=== PATIENT | male | born 1960 | race Caucasian/White ===

== ENCOUNTER 2019-11-18 18:43 | Emergency (ER) | payer MEDICAID ==
[~2019-11-18] VITALS: Ht 180.3 cm; Wt 72.6 kg
[2019-11-18 19:01] VITALS: Ht 180.3 cm; Wt 72.6 kg
[2019-11-18 21:00] LABS: BASOPHIL % 0.2 % (0-2); PLATELET COUNT 199 x10^3mcL (130-400); RED CELL DISTRIBUTION WIDTH 14.4 % (11.5-14.5)
[2019-11-18 21:17] LABS: CALCIUM 8.8 mg/dL (8.5-10.1); CARBON DIOXIDE 23.6 mmol/L (21-32); CHLORIDE SERUM 97 mmol/L (98-107); CREATININE SERUM 0.9 mg/dL (0.7-1.3); GFR1 > 60 mL/min; GLUCOSE SERUM 127 mg/dL (74-106); POTASSIUM SERUM 3.9 mmol/L (3.5-5.1); SODIUM SERUM 132 mmol/L (136-145)
[2019-11-18 21:21] LABS: ALKALINE PHOSPHATASE 78 U/L (46-116); ALT/SGPT 14 U/L (16-63); AST/SGOT 11 U/L (15-37); BILIRUBIN TOTAL 0.6 mg/dL (0.20-1.00)
[2019-11-18 21:27] LABS: FREE T4 0.98 ng/dL (0.76-1.46); FREE THYROXINE INDEX 1.7 ug/dL (1.4-4.5); T4(THYROXINE) 4.9 ug/dL (4.7-13.3)
[2019-11-18 21:28] LABS: T3 TOTAL 0.71 ng/mL
[2019-11-18 21:31] LABS: ALBUMIN 2.6 g/dL (3.4-5.0); TOTAL PROTEIN, SERUM 8.4 g/dL (6.4-8.2)
[2019-11-18 23:24] LABS: UA SPECIFIC GRAVITY 1.025 (1.005-1.035); microscopic required? YES; urine erythrocyte 2+ (NEGATIVE)
[2019-11-18 23:40] VITALS: BP 132/77
== END 2019-11-18 23:40 | disposition home or self-care (01) ==
LOC: ED 18:43
PROVIDERS: Emergency Medicine
DX: G89.29 Other chronic pain (principal); M54.5 Low back pain; R51 Headache; H53.149 Visual discomfort, unspecified; R11.0 Nausea; K80.80 Other cholelithiasis without obstruction; E07.9 Disorder of thyroid, unspecified; M79.644 Pain in right finger(s); Z98.890 Other specified postprocedural states
CPT/HCPCS: 84439; J1200; J2765; J7030